=== PATIENT | female | born 1960 | race Caucasian/White ===

== ENCOUNTER → 2020-06-25 | Outpatient (CLI) | payer BC ==
[~2020-06-25] MED LIST: BIOTIN1 MG PO; DITROPAN 5 MG TA5 MG PO; DOCUSATE SODIU250 MG PO; HYDROCODONE-AC1 EACH PO; IBUPROFEN600 MG PO; KLONOPIN0.5 MG PO; LIPITOR10 MG PO; SYNTHROID50 MCG PO; VITAMIN A PO; VITAMIN C1000 MG PO; VITAMIN D 40400 UNIT PO; ZOLOFT100 MG PO
== END ==
LOC: KOH-I 13:49
DX: M54.5 Low back pain (principal)
CPT/HCPCS: 72100

== ENCOUNTER → 2020-08-05 | Outpatient (CLI) | payer BC ==
[2020-08-05 14:15] LABS: HEMOGLOBIN 13.9 gm/dl (12.3-15.3); RED BLOOD COUNT 4.02 M/UL (4.00-5.10)
== END ==
LOC: OPSV2 12:30
PROVIDERS: Obstetrics & Gynecology
DX: Z01.812 Encounter for preprocedural laboratory examination (principal); N81.9 Female genital prolapse, unspecified
CPT/HCPCS: 36415; 81001; 85025

== ENCOUNTER 2020-08-15 06:27 | Day surgery (SDC) | payer BC ==
[~2020-08-15] VITALS: Ht 162.6 cm; Wt 67.1 kg
[~2020-08-15 06:27] MED LIST changes: -BIOTIN1 MG PO; -DITROPAN 5 MG TA5 MG PO; -DOCUSATE SODIU250 MG PO; -HYDROCODONE-AC1 EACH PO; -IBUPROFEN600 MG PO; -KLONOPIN0.5 MG PO; -LIPITOR10 MG PO; -SYNTHROID50 MCG PO; -VITAMIN C1000 MG PO; -VITAMIN D 40400 UNIT PO
[2020-08-15] MEDS ORDERED: DOCUSATE SODIU250 MG PO (09:14)
[2020-08-15] MEDS ORDERED: DITROPAN 5 MG TA5 MG PO (09:14)
[2020-08-15] MEDS ORDERED: IBUPROFEN600 MG PO (09:14)
[2020-08-15] MEDS ORDERED: HYDROCODONE-AC1 EACH PO (09:14)
[2020-08-15] MEDS ORDERED: SYNTHROID50 MCG PO (13:41)
[2020-08-15] MEDS ORDERED: KLONOPIN0.5 MG PO (13:41)
[2020-08-15] MEDS ORDERED: LIPITOR10 MG PO (13:42)
[2020-08-15] MEDS ORDERED: BIOTIN1 MG PO (13:42)
[2020-08-15] MEDS ORDERED: VITAMIN D 40400 UNIT PO (13:43)
[2020-08-15] MEDS ORDERED: VITAMIN C1000 MG PO (13:44)
--- NOTE | 2020-08-15 18:03 | NUR ---
08/15/20 1755 AMBULATED TO BATHROOM WITHOUT DIFFICULTY. SMALL AMOUNT BLEEDING NOTED. PAD CHANGED. TOLERATING PO LIQUIDS AND FULL LIQUID DIET, REG DIET ORDERED
== END 2020-08-16 09:50 | disposition home or self-care (01) ==
LOC: OR 06:27 → M/S 06:27 → EDSTATUS 08:00 → ZOBSOF 08:00 → M/S 13:55 → OR 13:55 → M/S 08-16 09:50 → OR 08-16 09:50
DX: N81.4 Uterovaginal prolapse, unspecified (principal); R33.9 Retention of urine, unspecified; D25.9 Leiomyoma of uterus, unspecified; N80.0 Endometriosis of uterus; K58.9 Irritable bowel syndrome, unspecified; E78.5 Hyperlipidemia, unspecified; F41.9 Anxiety disorder, unspecified; F32.9 Major depressive disorder, single episode, unspecified; D64.9 Anemia, unspecified
CPT/HCPCS: C1769; J0171; J0690; J1100; J2001; J2250; J2370; J2405; J2704; J2710; J3010; J7050; J7120